=== PATIENT | female | born 1975 | race Caucasian/White ===

== ENCOUNTER 2016-09-12 20:39 | Emergency (ER) | payer MEDICAID ==
[~2016-09-12] VITALS: Ht 165.1 cm; Wt 49.5 kg
[2016-09-12 20:49] VITALS: Ht 165.1 cm; Wt 49.5 kg
[2016-09-12] MEDS ORDERED: KETOROLAC 60 MG INJ IM STA (21:34)
[2016-09-12] MEDS ORDERED: IBUP-1542 PO (21:40)
--- NOTE | 2016-09-12 21:52 | ERD ---
ER Documentation Chief Complaint Date/Time DATE: 09/12/16 TIME: 21:48 Chief Complaint left leg pain x 4 years worse when walking a lot HPI 40-year-old female presents here in emergency department for complaints of left lower leg pain for 4 years, on and off, today, she was walking longer than the normal, started to have left lower leg pain. Patient denies any trauma. Patient described pain as sharp pain 6/10 scale, intermittent, denies any trauma, denies any redness or swelling. Patient did not take any medications and plans. Patient denies any difficulty movement, limitation movement of the joints. ROS All systems reviewed and are negative except as per history of present illness. Medications Home Meds Active Scripts Ibuprofen* (Motrin*) 600 Mg Tab, 600 MG PO Q6H Y for PAIN AND OR ELEVATED TEMP, #30 TAB Prov:BRODIE JOHNS NP 09/12/16 Allergies Allergies: Coded Allergies: No Known Allergy (Unverified , 09/12/16) PMhx/Soc History of Surgery: Yes (BREAST AUGMENTATION) Anesthesia Reaction: No Hx Neurological Disorder: No Hx Respiratory Disorders: No Hx Cardiac Disorders: No Hx Psychiatric Problems: No Hx Miscellaneous Medical Probl: No Hx Alcohol Use: No Hx Substance Use: No Hx Tobacco Use: No Smoking Status: Unknown if ever smoked FmHx Family History: No coronary disease, No diabetes, No other Physical Exam Vitals Vital Signs Date Time Temp Pulse Resp B/P Pulse Ox O2 Delivery O2 Flow Rate FiO2 09/12/16 20:49 98.1 99 18 134/75 100 Physical Exam Const: [] Head: Atraumatic Eyes: Normal Conjunctiva ENT: Normal External Ears, Nose and Mouth. Neck: Full range of motion..~ No meningismus. Resp: Clear to auscultation bilaterally Cardio: Regular rate and rhythm, no murmurs Abd: Soft, non tender, non distended. Normal bowel sounds Skin: No petechiae or rashes Back: No midline or flank tenderness Ext: No cyanosis, or edema Neur: Awake and alert Psych: Normal Mood and Affect Results 24 hrs Current Medications Medications (Trade) Dose Ordered Sig/Radha Route PRN Reason Start Time Stop Time Status Last Admin Dose Admin Ketorolac Tromethamine (Toradol) 60 mg ONCE STAT IM 09/12/16 21:34 09/12/16 21:35 DC Patient was given medication for pain here in emergency department, after treatment, patient verbalized feeling much better. Patient's pain is improved. Procedures/MDM Medical Decision Making: Patient's pain is most likely consistent with a leg strain. There is no suspicion for neurovascular compromise. Patient has intact sensation and circulation of the affected extremity. There is low suspicion for septic arthritis. Patient does not have any fever. Radiology exam is not indicated at this time Disposition: Home. Patient is given prescription for ibuprofen for pain. Patient was advised to elevate the affected area and apply ice on affected area. Patient was advised that if symptoms are worse, numbness, tingling, high fever, unable to move joint, worsening symptoms, to return to emergency department immediately. Otherwise, patient is advised to follow up with the primary care doctor in 5-7 days for reevaluation of symptoms. Departure Diagnosis: Primary Impression: Leg strain Condition: Stable Patient Instructions: Muscle Strain, Extremity Additional Instructions: Patient is given prescription for ibuprofen for pain. Patient was advised to elevate the affected area and apply ice on affected area. Patient was advised that if symptoms are worse, numbness, tingling, high fever, unable to move joint , worsening symptoms, to return to emergency department immediately. Otherwise, patient is advised to follow up with the primary care doctor in 5-7 days for reevaluation of symptoms. BRODIE JOHNS NP Sep 12, 2016 21:52
== END 2016-09-12 21:55 | disposition home or self-care (01) ==
LOC: FTE 20:39
DX: S86.912A Strain of unspecified muscle(s) and tendon(s) at lower leg level, left leg, initial encounter (principal); X58.XXXA Exposure to other specified factors, initial encounter; Y92.9 Unspecified place or not applicable
CPT/HCPCS: 96372; J1885; Z7502